=== PATIENT | male | born 1965 | race Hispanic/Latino ===

== ENCOUNTER 2020-07-24 09:47 | Inpatient (IN) | payer MEDICARE ==
[2020-07-24] VITALS (12 sets, daily range): BP systolic 127–191; BP diastolic 54–97
[~2020-07-24] VITALS: Ht 175.3 cm; Wt 138.7 kg
[2020-07-24 10:38] LABS: BASOPHILS % (AUTO) 0.4 % (0.0-5.0); EOSINOPHILS % (AUTO) 4.3 % (0.0-8.0); LYMPHOCYTES % (AUTO) 15.1 % (21.0-51.0); MEAN CORPUSCULAR HEMOGLOBIN 34.4 pg (27.0-33.0); MEAN CORPUSCULAR HGB CONC 34.1 g/dL (32.0-36.0); MEAN CORPUSCULAR VOLUME 100.7 fL (79-99); MONOCYTES % (AUTO) 7.8 % (3.0-13.0); PLATELET COUNT (AUTO) 129 K/uL (130-400); RED BLOOD CELL COUNT(AUTO) 2.88 MIL/uL (4.50-6.20); WHITE BLOOD COUNT (AUTO) 7.2 K/uL (4.8-10.8)
[2020-07-24 10:48] LABS: INR 1.19 (0.85-1.15); PROTHROMBIN TIME 12.5 SEC (9.6-11.6)
[2020-07-24 10:50] LABS: PARTIAL THROMBOPLASTIN TIME 34.1 SEC (26.3-35.5)
[2020-07-24 10:52] LABS: CREATININE 12.3 mg/dL (0.5-1.5)
[2020-07-24 10:57] LABS: APPEARANCE,URINE Clear (CLEAR); BILIRUBIN,URINE Negative (NEGATIVE); COLOR,URINE Yellow (YELLOW); GLUCOSE, URINE (UA) TRACE mg/dL (NEGATIVE); KETONES,URINE Negative (NEGATIVE); LEUKOCYTE ESTERASE ,URINE Negative (NEGATIVE); NITRATE,URINE Negative (NEGATIVE); OCCULT BLOOD,URINE Trace (NEGATIVE); PROTEIN,URINE 300 mg/dL (NEGATIVE); UROBILINOGEN,URINE 0.2 mg/dL (0.2-1.0)
[2020-07-24 11:30] LABS: BACTERIA,URINE Rare /HPF (None Seen); MUCUS,URINE Rare LPF (None Seen); RBC,URINE 0-1 /HPF (0-1); WBC,URINE 0-1 /HPF (0-1)
[2020-07-24] MEDS ORDERED: HYDRALAZINE 20MG/ML VIAL IV PRN (13:15)
[2020-07-24] MEDS ORDERED: CALCIUM GLUC 1GM/10ML VIAL IV SCH (13:15)
[2020-07-24 13:20] LABS: MAGNESIUM 1.9 mg/dL (1.80-2.40); PHOSPHORUS 7.7 mg/dL (2.5-4.9); URIC ACID 9.7 mg/dL (2.6-7.2)
[2020-07-24 13:30] LABS: HEMOGLOBIN A1C 6.9 % (4.0-6.0)
[2020-07-24] MEDS ORDERED: CALCIUM GLUC 1GM 1 GM in 0.9%NACL 100ML 100 ML IV SCH (13:30)
[2020-07-24 13:46] LABS: ALBUMIN 3.5 g/dL (3.5-5.0); BILIRUBIN,DIRECT 0.1 mg/dL (0.0-0.3); BILIRUBIN,TOTAL 0.6 mg/dL (0.2-1.0); TOTAL PROTEIN, SERUM 7.6 g/dL (6.0-8.3)
[2020-07-24] MEDS ORDERED: LIDOCAINE HCL 1% MDV 50ML VIAL ONE (16:31)
[2020-07-24] MEDS ORDERED: HEPARIN 1,000 UNIT VIAL ONE (16:31)
[2020-07-24] MEDS ORDERED: ACETAMINOPHEN 500 MG TABLET ONE (17:43)
[2020-07-24 19:39] LABS: HEMOGLOBIN A1C 6.8 % (4.0-6.0)
[2020-07-24 19:41] LABS: ALBUMIN 3.3 g/dL (3.5-5.0)
[2020-07-24 19:45] LABS: CREATININE 10.4 mg/dL (0.5-1.5)
[2020-07-24 20:41] LABS: % IRON SATURATION 48.2 % (30-44)
[2020-07-24] MEDS ORDERED: PHARMACY COMMUNICATION MISC PRN (21:00)
[2020-07-24] MEDS ORDERED: 0.9%NACL 1000ML 1,000 ML IV PRN (21:00)
[2020-07-24] MEDS ORDERED: 0.9%NACL 1000ML IV PRN (21:00)
[2020-07-24] MEDS ORDERED: NITROGLYCERIN 0.4 MG SL TAB SL PRN (21:00)
[2020-07-24] MEDS ORDERED: HEPARIN 5,000 UNIT VIAL IJ PRN (21:00)
[2020-07-24] MEDS: ACETAMINOPHEN 325 MG TAB PO PRN (22:30)
[2020-07-25] VITALS (7 sets, daily range): BP systolic 120–173; BP diastolic 47–89
[2020-07-25] MEDS: ACETAMINOPHEN 325 MG TAB PO PRN (03:31)
[2020-07-25] MEDS ORDERED: HYDROMORPHONE 0.5 MG SYG (0.5MG/0.5ML) IVP SCH (05:30)
[2020-07-25 05:47] LABS: HEMATOCRIT 27.4 % (42-54); MEAN CORPUSCULAR HEMOGLOBIN 34.4 pg (27.0-33.0); MEAN CORPUSCULAR HGB CONC 34.7 g/dL (32.0-36.0); MEAN CORPUSCULAR VOLUME 99.3 fL (79-99); RED BLOOD CELL COUNT(AUTO) 2.76 MIL/uL (4.50-6.20); WHITE BLOOD COUNT (AUTO) 6.3 K/uL (4.8-10.8)
[2020-07-25] MEDS ORDERED: HYDROMORPHONE 0.5 MG SYG (0.5MG/0.5ML) ONE (05:57)
[2020-07-25 06:19] LABS: HEMOGLOBIN A1C 6.8 % (4.0-6.0); PHOSPHORUS 6.6 mg/dL (2.5-4.9); POTASSIUM 4.9 mmol/L (3.5-5.1); THYROID STIMULATING HORMONE 1.05 uIU/mL (0.36-3.74)
[2020-07-25 06:33] LABS: CREATININE 10.1 mg/dL (0.5-1.5)
[2020-07-25] MEDS: FAMOTIDINE 20MG TAB PO SCH (08:35)
[2020-07-25] MEDS: ENOXAPARIN SODIUM 30 MG/0.3 ML SQ SCH (08:36)
[2020-07-25] MEDS ORDERED: ONDANSETRON 4MG INJ ONE (13:23)
[2020-07-25] MEDS ORDERED: ONDANSETRON 4MG INJ IVP PRN (13:30)
[2020-07-25 14:46] LABS: ALBUMIN 3.2 g/dL (3.5-5.0); BILIRUBIN,DIRECT 0.2 mg/dL (0.0-0.3); BILIRUBIN,TOTAL 0.7 mg/dL (0.2-1.0); TOTAL PROTEIN, SERUM 7.7 g/dL (6.0-8.3)
[2020-07-26] VITALS (14 sets, daily range): BP systolic 131–191; BP diastolic 57–95
[2020-07-26 05:26] LABS: HEMATOCRIT 28.6 % (42-54); MEAN CORPUSCULAR HEMOGLOBIN 34.1 pg (27.0-33.0); MEAN CORPUSCULAR HGB CONC 34.3 g/dL (32.0-36.0); MEAN CORPUSCULAR VOLUME 99.7 fL (79-99); PLATELET COUNT (AUTO) 120 K/uL (130-400); RED BLOOD CELL COUNT(AUTO) 2.87 MIL/uL (4.50-6.20); RED CELL DISTRIBUTION WIDTH 13.6 % (11.0-15.5); WHITE BLOOD COUNT (AUTO) 5.4 K/uL (4.8-10.8)
[2020-07-26 05:38] LABS: MAGNESIUM 1.7 mg/dL (1.80-2.40); PHOSPHORUS 6.9 mg/dL (2.5-4.9); POTASSIUM 4.8 mmol/L (3.5-5.1)
[2020-07-26 06:01] LABS: CREATININE 8.7 mg/dL (0.5-1.5)
[2020-07-26 07:13] LABS: BASOPHILS % (MANUAL) 1 % (0-2); EOSINOPHILS % (MANUAL) 3 % (1-6); LYMPHOCYTES % (MANUAL) 24 % (22-44); MAN.DIFF COMMENT-IMPRESSION MANUAL DIFFERENTIAL; MONOCYTES % (MANUAL) 7 % (2-9); SEGMENTED NEUTROPHILS % 65 % (40-70)
[2020-07-26 07:14] LABS: PLATELET MORPHOLOGY COMMENT SLIGHTLY DECREASED
[2020-07-26] MEDS ORDERED: HEPARIN 10,000 UNIT/10ML (1,000 UNIT/ML) VIAL ONE (07:42)
[2020-07-26] MEDS ORDERED: HEPARIN 1,000 UNIT VIAL ONE (07:42)
[2020-07-26] MEDS ORDERED: IODIXANOL 320 MG/ML 100 ML VIAL ONE (07:43)
[2020-07-26] MEDS ORDERED: LIDOCAINE HCL 1% MDV 50ML VIAL ONE (07:43)
[2020-07-26] MEDS ORDERED: FENTANYL CITRATE PF 50 MCG/1 ML 2ML VIAL ONE ×2 (07:56→09:01)
[2020-07-26] MEDS ORDERED: MIDAZOLAM HCL 1 MG/ML 2ML VIAL ONE ×2 (07:56→08:33)
[2020-07-26] MEDS: ENOXAPARIN SODIUM 30 MG/0.3 ML SQ SCH (09:00)
[2020-07-26] MEDS: FAMOTIDINE 20MG TAB PO SCH (10:35)
[2020-07-27 00:07] LABS: HEPATITIS Bs ANTIGEN SCREEN P Negative (Negative)
[2020-07-27] MEDS ORDERED: HYDROMORPHONE 2 MG VIAL (2MG/ML) ONE (01:31)
[2020-07-27] MEDS ORDERED: HYDROMORPHONE 0.5 MG SYG (0.5MG/0.5ML) IVP ONE (01:45)
[2020-07-27 03:39] VITALS: BP 125/41
[2020-07-27 08:48] VITALS: BP 158/89
[2020-07-27] MEDS ORDERED: ONDANSETRON 4MG INJ IVP PRN (10:45)
[2020-07-27 12:28] VITALS: BP 111/71
[2020-07-27] MEDS: FAMOTIDINE 20MG TAB PO SCH (12:49)
[2020-07-27] MEDS: ENOXAPARIN SODIUM 30 MG/0.3 ML SQ SCH (12:50)
[2020-07-27 15:58] VITALS: BP 163/73
[2020-07-27 16:56] LABS: HEMATOCRIT 30.3 % (42-54)
[2020-07-27 17:08] LABS: ALBUMIN 3.6 g/dL (3.5-5.0); CREATININE 6.9 mg/dL (0.5-1.5)
[2020-07-27 17:32] LABS: HEMOGLOBIN A1C 6.6 % (4.0-6.0)
[2020-07-27 18:05] LABS: % IRON SATURATION 44.2 % (30-44)
[2020-07-27 19:00] VITALS: BP 142/81
[2020-07-28] VITALS (7 sets, daily range): BP systolic 107–165; BP diastolic 69–85
[2020-07-28 04:56] LABS: BASOPHILS % (AUTO) 0.6 % (0.0-5.0); EOSINOPHILS % (AUTO) 5.4 % (0.0-8.0); LYMPHOCYTES % (AUTO) 20.2 % (21.0-51.0); MEAN CORPUSCULAR HEMOGLOBIN 34.4 pg (27.0-33.0); MEAN CORPUSCULAR HGB CONC 34.6 g/dL (32.0-36.0); MEAN CORPUSCULAR VOLUME 99.2 fL (79-99); MONOCYTES % (AUTO) 11.5 % (3.0-13.0); PLATELET COUNT (AUTO) 124 K/uL (130-400); RED BLOOD CELL COUNT(AUTO) 2.62 MIL/uL (4.50-6.20); RED CELL DISTRIBUTION WIDTH 13.4 % (11.0-15.5); WHITE BLOOD COUNT (AUTO) 6.5 K/uL (4.8-10.8)
[2020-07-28 05:13] LABS: CREATININE 7.8 mg/dL (0.5-1.5); POTASSIUM 4.7 mmol/L (3.5-5.1)
[2020-07-28] MEDS: ENOXAPARIN SODIUM 30 MG/0.3 ML SQ SCH (07:43)
[2020-07-28] MEDS: FAMOTIDINE 20MG TAB PO SCH (07:43)
[2020-07-28] MEDS ORDERED: ACETAMINOPHEN WITH CODEINE 1 TAB TAB ONE (10:36)
[2020-07-28] MEDS: ACETAMINOPHEN 325 MG TAB PO PRN (18:00)
[2020-07-29] MEDS: ACETAMINOPHEN WITH CODEINE 1 TAB TAB PO PRN ×2 (00:57→07:56)
[2020-07-29 04:20] VITALS: BP 136/83
[2020-07-29 04:32] LABS: BASOPHILS % (AUTO) 0.8 % (0.0-5.0); EOSINOPHILS % (AUTO) 5.7 % (0.0-8.0); HEMATOCRIT 26.3 % (42-54); LYMPHOCYTES % (AUTO) 23.2 % (21.0-51.0); MEAN CORPUSCULAR HEMOGLOBIN 34.4 pg (27.0-33.0); MEAN CORPUSCULAR HGB CONC 34.2 g/dL (32.0-36.0); MEAN CORPUSCULAR VOLUME 100.4 fL (79-99); MONOCYTES % (AUTO) 11.4 % (3.0-13.0); NEUTROPHILS % (AUTO) 58.6 % (40.0-77.0); PLATELET COUNT (AUTO) 129 K/uL (130-400); RED BLOOD CELL COUNT(AUTO) 2.62 MIL/uL (4.50-6.20); RED CELL DISTRIBUTION WIDTH 13.4 % (11.0-15.5); WHITE BLOOD COUNT (AUTO) 6.6 K/uL (4.8-10.8)
[2020-07-29 04:58] LABS: CREATININE 9.2 mg/dL (0.5-1.5)
[2020-07-29 06:13] LABS: HEPATITIS Bs ANTIGEN SCREEN P Negative (Negative)
[2020-07-29] MEDS: FAMOTIDINE 20MG TAB PO SCH (07:56)
[2020-07-29] MEDS: ENOXAPARIN SODIUM 30 MG/0.3 ML SQ SCH (07:56)
[2020-07-29 08:01] VITALS: BP 153/73
[2020-07-29 11:53] VITALS: BP 156/46
[2020-07-29] MEDS ORDERED: CARV25TA77 PO ×2 (15:24→15:25)
[2020-07-29] MEDS ORDERED: CALC667T8 PO (15:28)
[2020-07-29 16:15] VITALS: BP 134/60
[2020-07-29] MEDS ORDERED: CALCIUM AC 667MG CAP PO SCH (21:00)
[2020-07-29] MEDS ORDERED: CARVEDILOL 6.25 MG TABLET PO SCH (21:00)
== END 2020-07-29 18:00 | disposition home or self-care (01) | DRG 252 ==
LOC: EDH 09:47 → OBSVTOIN 13:02 → EDHIP 13:02 → 4CH 17:47 → 3AH 07-27 16:54
PROVIDERS: ADMIT Internal Medicine; ATTEND Internal Medicine
PROC: 02HV33Z Insertion of Infusion Device into Superior Vena Cava, Percutaneous Approach (ICD-10-PCS; 2020-07-24)
PROC: B5181ZA Fluoroscopy of Superior Vena Cava using Low Osmolar Contrast, Guidance (ICD-10-PCS; 2020-07-24)
PROC: B548ZZA Ultrasonography of Superior Vena Cava, Guidance (ICD-10-PCS; 2020-07-24)
PROC: 5A1D70Z Performance of Urinary Filtration, Intermittent, Less than 6 Hours Per Day (ICD-10-PCS; 2020-07-24)
PROC: 5A1D70Z Performance of Urinary Filtration, Intermittent, Less than 6 Hours Per Day (ICD-10-PCS; 2020-07-25)
PROC: 05WY3JZ Revision of Synthetic Substitute in Upper Vein, Percutaneous Approach (ICD-10-PCS; principal; 2020-07-26)
PROC: 02HV33Z Insertion of Infusion Device into Superior Vena Cava, Percutaneous Approach (ICD-10-PCS; 2020-07-26)
PROC: 0JH63XZ Insertion of Tunneled Vascular Access Device into Chest Subcutaneous Tissue and Fascia, Percutaneous Approach (ICD-10-PCS; 2020-07-26)
PROC: B5181ZA Fluoroscopy of Superior Vena Cava using Low Osmolar Contrast, Guidance (ICD-10-PCS; 2020-07-26)
PROC: B51W1ZZ Fluoroscopy of Dialysis Shunt/Fistula using Low Osmolar Contrast (ICD-10-PCS; 2020-07-26)
PROC: B548ZZA Ultrasonography of Superior Vena Cava, Guidance (ICD-10-PCS; 2020-07-26)
PROC: 02PYX3Z Removal of Infusion Device from Great Vessel, External Approach (ICD-10-PCS; 2020-07-26)
PROC: 5A1D70Z Performance of Urinary Filtration, Intermittent, Less than 6 Hours Per Day (ICD-10-PCS; 2020-07-27)
PROC: 5A1D70Z Performance of Urinary Filtration, Intermittent, Less than 6 Hours Per Day (ICD-10-PCS; 2020-07-29)
DX: T82.510A Breakdown (mechanical) of surgically created arteriovenous fistula, initial encounter (principal); N18.6 End stage renal disease; I12.0 Hypertensive chronic kidney disease with stage 5 chronic kidney disease or end stage renal disease; T82.594A Other mechanical complication of infusion catheter, initial encounter; E87.5 Hyperkalemia; Z99.2 Dependence on renal dialysis; E11.22 Type 2 diabetes mellitus with diabetic chronic kidney disease; Y71.2 Prosthetic and other implants, materials and accessory cardiovascular devices associated with adverse incidents; D64.9 Anemia, unspecified; E78.5 Hyperlipidemia, unspecified; Z20.828 Contact with and (suspected) exposure to other viral communicable diseases; E87.70 Fluid overload, unspecified; I25.10 Atherosclerotic heart disease of native coronary artery without angina pectoris; L30.9 Dermatitis, unspecified; Z80.0 Family history of malignant neoplasm of digestive organs; Z91.15 Patient's noncompliance with renal dialysis; Z95.1 Presence of aortocoronary bypass graft
CPT/HCPCS: 36415; 36556; 36558; 36581; 36902; 71045; 77001; 80048; 80061; 80076; 81001; 82040; 82565; 82728; 82948; 83036; 83540; 83550; 83735; 84100; 84443; 84520; 84550; 85014; 85018; 85025; 85027; 85610; 85730; 86701; 86704; 86706; 87340; 87390; 87426; 87520; 90935; 93005; 99156; 99157; C1725; C1750; C1752; C1769; C1894; G0378; J0610; J1170; J1644; J1650; J2250; J2405; J3010; J3490; Q9967; U0003